=== PATIENT | male | born 1995 | race African-American/Black ===

== ENCOUNTER 2018-12-14 20:18 | Emergency (ER) | payer MEDICARE, MEDICAID ==
[2018-12-14 21:28] VITALS: BP 135/80
--- NOTE | 2018-12-14 22:02 | UC ---
Shoulder Pain HPI - HPI Summary HPI Summary: 23-year-old male presents with complaints of left shoulder pain. States yesterday he was wrestling with his girlfriend and is unsure of the exact mechanism of injury but felt a pop in the shoulder. States pain is a constant ache and worsens and becomes sharp in nature with any type of movement. Reports previous dislocation of the shoulder while playing football in high school. Denies any numbness or tingling. - History of Current Complaint Chief Complaint: UCUpperExtremity Stated Complaint: LEFT SHOULDER PAIN Time Seen by Provider: 12/14/18 21:55 Hx Obtained From: Patient Pain Intensity: 9 - Allergies/Home Medications Allergies/Adverse Reactions: Allergies Allergy/AdvReac Type Severity Reaction Status Date / Time amoxicillin Allergy Rash Verified 12/14/18 21:29 aspirin Allergy See Comment Verified 12/14/18 21:12 bee venom protein (honey bee) Allergy Swelling Verified 12/14/18 21:29 Sulfa (Sulfonamide Allergy See Comment Verified 12/14/18 21:12 Antibiotics) Home Medications: Home Medications NK [No Home Medications Reported] 12/14/18 [History Confirmed 12/14/18] PMH/Surg Hx/FS Hx/Imm Hx Previously Healthy: Yes - Denies significant PMH - Surgical History Surgical History: Yes Surgery Procedure, Year, and Place: cochlear implants - Family History Known Family History: Positive: Non-Contributory - Social History Occupation: Employed Full-time Lives: With Family Alcohol Use: None Substance Use Type: Excessive Caffeine Substance Use Comment - Amount & Last Used: [employer] drinks 2-3 Smoking Status (MU): Light Every Day Tobacco Smoker Review of Systems All Other Systems Reviewed And Are Negative: Yes Constitutional: Positive: Negative Skin: Negative: Bruising Respiratory: Positive: Negative Cardiovascular: Positive: Negative Gastrointestinal: Positive: Negative Genitourinary: Positive: Negative Motor: Negative: Weakness Neurovascular: Negative: Decreased Sensation Musculoskeletal: Positive: Other: - See HPI Neurological: Positive: Negative Is Patient Immunocompromised?: No Physical Exam - Summary Physical Exam Summary: GENERAL APPEARANCE: Well developed, well nourished, alert and cooperative, and appears to be in no acute distress. CARDIAC: Normal S1 and S2. No S3, S4 or murmurs. Rhythm is regular. There is no peripheral edema, cyanosis or pallor. Extremities are warm and well perfused. Capillary refill is less than 2 seconds. Peripheral pulses intact. LUNGS: Clear to auscultation without rales, rhonchi, wheezing or diminished breath sounds. ABDOMEN: Positive bowel sounds. Soft, nondistended, nontender. No guarding or rebound. No masses or hepatosplenomegally. MUSKULOSKELETAL: Normal muscular development. Normal gait. EXTREMITIES: Tenderness over the AC joint of the left shoulder without gross deformity, ecchymosis, or edema. Extension of shoulder limited due to pain. Circulation and sensation intact. SKIN: Skin normal color, texture and turgor with no lesions or eruptions. Triage Information Reviewed: Yes Vital Signs: Initial Vital Signs Temp 100.1 F 12/14/18 21:17 Pulse 76 12/14/18 21:17 Resp 20 12/14/18 21:17 BP 135/80 12/14/18 21:17 Pulse Ox 99 12/14/18 21:17 Vital Signs Reviewed: Yes Diagnostics - Radiology No standard instances Radiology Interpretation Completed By: ED Physician - No acute fracute or dislocation Shoulder Course/Dx - Course Course Of Treatment: 23-year-old male presents with complaints of left shoulder pain. States yesterday he was wrestling with his girlfriend and is unsure of the exact mechanism of injury but felt a pop in the shoulder. States pain is a constant ache and worsens and becomes sharp in nature with any type of movement. Reports previous dislocation of the shoulder while playing football in high school. Denies any numbness or tingling. Patient had tenderness over the AC joint of the left shoulder without gross deformity, ecchymosis, or edema. Extension of shoulder limited due to pain. Circulation and sensation intact. X- ray showed no acute fracture or dislocation. Recommending conservative treatment for a left shoulder injury including NSAIDs and RICE. Patient was placed in a sling and instructed to use for the next 2 days for support. Gentle range of motion as were demonstrated the patient and recommended that he perform these every 2 hours while awake to prevent freezing of the shoulder. He is to follow-up with orthopedic surgery and 5-7 days if symptoms are not improving. Anticipatory guidance warning symptoms were reviewed with the patient. Verbalizes understanding and agrees with plan of care. - Differential Dx/Diagnosis Differential Diagnosis/HQI/PQRI: AC Separation, Contusion, Dislocation, Fracture (Closed), Rotator Cuff Injury, Sprain Provider Diagnosis: Injury of left shoulder Discharge ED - Sign-Out/Discharge Documenting (check all that apply): Patient Departure All imaging exams completed and their final reports reviewed: No - Discharge Plan Condition: Stable Disposition: HOME Patient Education Materials: Shoulder Pain (ED) Forms: *Work Release Referrals: No Primary Care Phys,NOPCP [Primary Care Provider] - Morgan Lazar MD [Medical Doctor] - 5 Days Additional Instructions: The x-ray performed in the clinic today showed no evidence of a fracture. The x- ray will be reviewed by the radiologist tomorrow and we will contact you if they see anything that changes your plan of care. Rest the shoulder as much as possible. Wear the sling that was provided in the clinic for support. Do not wear for more than 2 days. Perform gentle range of motion exercises as demonstrated to you every 2 hours while awake to prevent freezing up of the shoulder. Apply ice to the affected area for 15-20 minutes at least 4 times a day to help with the pain and swelling. Take ibuprofen (Advil, Motrin) 600 mg with food every 8 hours for next 5 days then may take as needed for pain. Follow up with orthopedic surgery in 5-7 days if symptoms do not improve. Call for appointment. Seek immediate medical attention if you have severe pain not managed with pain medication, you are unable to walk or bear any weight, develop numbness or tingling in the arm, hand, or fingers, or have any worsening of symptoms. - Billing Disposition and Condition Condition: STABLE Disposition: Home
--- NOTE | 2018-12-15 14:34 | UC ---
- Progress Note Progress Note: LEFT SHOULDER XRAY REPORT : NO FRACTURE NOTED Course/Dx - Diagnoses Provider Diagnoses: Injury of left shoulder Discharge ED - Sign-Out/Discharge Documenting (check all that apply): Patient Departure All imaging exams completed and their final reports reviewed: Yes - Discharge Plan Condition: Stable Disposition: HOME Patient Education Materials: Shoulder Pain (ED) Forms: *Work Release Referrals: Morgan Lazar MD [Medical Doctor] - 5 Days No Primary Care Phys,NOPCP [Primary Care Provider] - Additional Instructions: The x-ray performed in the clinic today showed no evidence of a fracture. The x- ray will be reviewed by the radiologist tomorrow and we will contact you if they see anything that changes your plan of care. Rest the shoulder as much as possible. Wear the sling that was provided in the clinic for support. Do not wear for more than 2 days. Perform gentle range of motion exercises as demonstrated to you every 2 hours while awake to prevent freezing up of the shoulder. Apply ice to the affected area for 15-20 minutes at least 4 times a day to help with the pain and swelling. Take ibuprofen (Advil, Motrin) 600 mg with food every 8 hours for next 5 days then may take as needed for pain. Follow up with orthopedic surgery in 5-7 days if symptoms do not improve. Call for appointment. Seek immediate medical attention if you have severe pain not managed with pain medication, you are unable to walk or bear any weight, develop numbness or tingling in the arm, hand, or fingers, or have any worsening of symptoms. - Billing Disposition and Condition Condition: STABLE Disposition: Home
== END 2018-12-14 22:25 | disposition home or self-care (01) ==
LOC: UCCORT 20:18
DX: S49.92XA Unspecified injury of left shoulder and upper arm, initial encounter (principal); Y93.83 Activity, rough housing and horseplay; Y92.9 Unspecified place or not applicable; Z88.0 Allergy status to penicillin; Z88.6 Allergy status to analgesic agent; Z88.2 Allergy status to sulfonamides; F17.200 Nicotine dependence, unspecified, uncomplicated
CPT/HCPCS: 99203; G0463